=== PATIENT | female | born 1980 | race Caucasian/White ===

== ENCOUNTER 2017-12-13 15:36 | Emergency (ER) | payer OTHER ==
--- NOTE | 2017-12-13 17:53 | ED Physician Documentation ---
PD HPI CHEST PAIN - Stated complaint Stated Complaint: CHEST PX - Chief complaint Chief Complaint: Cardiac - History obtained from History obtained from: Patient - History of Present Illness Timing - onset: Other (She developed relatively sudden onset chest pain earlier this afternoon, it is a sharp right-sided chest pain radiating between the shoulder blades is worse if she bends forward or lifts her right arm. She is not short of breath with it. She denies exogenous estrogens, recent travel, leg pain or swelling. She has no history of heart or lung problems. She says it is somewhat reminiscent of prior gallbladder pain from when she had her gallbladder removed 6 years ago.) Review of Systems Constitutional: reports: Reviewed and negative. denies: Fever, Chills, Fatigue Nose: denies: Rhinorrhea / runny nose, Congestion Cardiac: reports: Chest pain / pressure. denies: Palpitations Respiratory: denies: Dyspnea, Cough GI: denies: Abdominal Pain, Nausea, Vomiting PD PAST MEDICAL HISTORY - Past Surgical History Past Surgical History: Yes General: Cholecystectomy, Appendectomy - Allergies Allergies/Adverse Reactions: Allergies Allergy/AdvReac Type Severity Reaction Status Date / Time erythromycin base Allergy Nausea Verified 08/22/15 19:38 [Erythromycin Base] hydrocodone bitartrate * Allergy Vomitting Verified 08/22/15 19:38 [From Vicodin] - Social History Does the pt smoke?: No Smoking Status: Never smoker Does the pt drink ETOH?: Yes Does the pt have substance abuse?: No - Immunizations Immunizations are current?: Yes - POLST Patient has POLST: No PD ED PE NORMAL - Vitals Vital signs reviewed: Yes - General General: Alert and oriented X 3, No acute distress - HEENT HEENT: PERRL, EOMI - Neck Neck: Supple, no meningeal sign, No bony TTP - Cardiac Cardiac: RRR, No murmur - Respiratory Respiratory: No respiratory distress, Clear bilaterally - Abdomen Abdomen: Non tender - Extremities Extremities: No edema, No calf tenderness / cord - Neuro Neuro: Alert and oriented X 3 Eye Opening: To Voice Motor: Obeys Commands Verbal: Oriented GCS Score: 14 - Psych Psych: Normal mood Results - Vitals Vitals: Vital Signs - 24 hr 12/13/17 15:41 Temperature 36.6 C Heart Rate 94 Respiratory 16 Rate Blood Pressure 129/87 H O2 Saturation 100 Oxygen O2 Source Room air - EKG (time done) 1540 Rate: Rate (enter#) (93) Rhythm: NSR [place]: Normal Intervals: Normal [place] QRS: Normal Ischemia: Normal ST segments - Labs Labs: Laboratory Tests 12/13/17 12/13/17 12/13/17 17:41 17:41 17:41 WBC 6.7 RBC 4.64 Hgb 12.3 Hct 37.4 MCV 80.4 L MCH 26.4 L MCHC 32.8 RDW 14.6 Plt Count 294 MPV 7.3 L Neut # 3.6 Lymph # 2.3 Chaves # 0.3 Eos # 0.4 Baso # 0.1 Absolute Nucleated RBC 0.00 Nucleated RBC % 0.0 D-Dimer Sodium 135 Potassium 3.8 Chloride 103 Carbon Dioxide 25 Anion Gap 7.0 BUN 9 Creatinine 0.7 Estimated GFR (MDRD) 93 Glucose 91 Calcium 9.0 Total Bilirubin 0.2 AST 19 ALT 19 Alkaline Phosphatase 49 Troponin I < 0.04 Total Protein 8.1 Albumin 4.3 Globulin 3.8 Albumin/Globulin Ratio 1.1 Lipase 18 L 12/13/17 17:41 WBC RBC Hgb Hct MCV MCH MCHC RDW Plt Count MPV Neut # Lymph # Chaves # Eos # Baso # Absolute Nucleated RBC Nucleated RBC % D-Dimer < 200.0 L Sodium Potassium Chloride Carbon Dioxide Anion Gap BUN Creatinine Estimated GFR (MDRD) Glucose Calcium Total Bilirubin AST ALT Alkaline Phosphatase Troponin I Total Protein Albumin Globulin Albumin/Globulin Ratio Lipase - Rads (name of study) 2v chest Radiology: EMP read contemporaneously (normal) PD MEDICAL DECISION MAKING - ED course ED course: PE was considered because she is intermittently tachycardic but her d-dimer is negative. There is nothing in the history or physical to suggest dissection. Departure - Departure Disposition: Home, Self Care Clinical Impression: Chest pain Qualifiers: Chest pain type: pleurodynia Qualified Code(s): R07.81 - Pleurodynia Condition: Good Record reviewed to determine appropriate education?: Yes Instructions: ED Chest Pain NonCardiac Comments: Call your doctor to arrange a follow-up appointment, make the next available appointment. In the interim, return anytime if worse or if new symptoms develop. Your blood pressure was elevated today on check into the emergency department. This does not mean that you have hypertension, it is a common phenomenon to come to the emergency department and have elevated blood pressure. I recommend that you see your primary care physician within the week to have it rechecked when you are feeling better.
[2017-12-13 17:54] LABS: BASOPHILS # (AUTO) 0.1 10^3/uL (0.0-0.1); EOSINOPHILS # (AUTO) 0.4 10^3/uL (0.0-0.7); EOSINOPHILS % (AUTO) 5.9 %; HGB - HEMOGLOBIN 12.3 g/dL (12.0-16.0); LYMPHOCYTES # (AUTO) 2.3 10^3/uL (1.5-3.5); LYMPHOCYTES % (AUTO) 34.1 %; MEAN CORPUSCULAR HEMOGLOBIN 26.4 pg (27.0-31.0); MEAN CORPUSCULAR HGB CONC 32.8 g/dL (32.0-36.0); MEAN CORPUSCULAR VOLUME 80.4 fL (81.0-99.0); MEAN PLATELET VOLUME 7.3 fL (7.9-10.8); MONOCYTES # (AUTO) 0.3 10^3/uL (0.0-1.0); MONOCYTES % (AUTO) 5.1 %; NEUTROPHILS # (AUTO) 3.6 10^3/uL (1.5-6.6); NEUTROPHILS % (AUTO) 53.9 %; PLT - PLATELET COUNT 294 10^3/uL (130-450); RED BLOOD COUNT 4.64 10^6/uL (4.20-5.40); RED CELL DISTRIBUTION WIDTH 14.6 % (12.0-15.0); WHITE BLOOD COUNT 6.7 x10^3/uL (4.8-10.8)
[2017-12-13 17:57] LABS: ALBUMIN 4.3 g/dL (3.2-5.5); ALBUMIN/GLOBULIN RATIO 1.1 (1.0-2.2); BILIRUBIN,TOTAL 0.2 mg/dL (0.2-1.0); CREATININE 0.7 mg/dL (0.4-1.0); TOTAL PROTEIN 8.1 g/dL (6.7-8.2)
--- NOTE | 2017-12-13 18:22 | XRAY Report ---
EXAM: CHEST RADIOGRAPHY EXAM DATE: 12/13/2017 06:03 PM. CLINICAL HISTORY: Chest pain. COMPARISON: None. TECHNIQUE: 2 views. FINDINGS: Lungs/Pleura: No focal opacities evident. No pleural effusion. No pneumothorax. Normal volumes. Mediastinum: Heart and mediastinal contours are unremarkable. Other: None. IMPRESSION: No acute intrathoracic plain film abnormality. [facility] Referring Provider Line: [phone] SITE ID: [id number]
[2017-12-13 18:37] VITALS: BP 120/84
[2017-12-13] MEDS ORDERED: IBUPROFEN 800 MG TABLET PO STA (18:39)
== END 2017-12-13 19:03 | disposition home or self-care (01) ==
LOC: ED 15:36
DX: R07.81 Pleurodynia (principal); R03.0 Elevated blood-pressure reading, without diagnosis of hypertension; I45.9 Conduction disorder, unspecified
CPT/HCPCS: 36415; 71046; 80053; 83690; 84484; 85025; 85379; 93005; 99283; 99284; A9270; 81001; 81003; 81025; 87086

== ENCOUNTER 2018-07-25 08:25 | Emergency (ER) | payer OTHER ==
[2018-07-25] MEDS ORDERED: VANCOMYCIN INJ 1 GM in SODIUM CHLORIDE 0.9% 500 ML IV STA (09:00)
[2018-07-25] MEDS ORDERED: cefTRIAXone 1 GM in SODIUM CHLORIDE 0.9% MINIBAG 100 ML IV STA (09:01)
--- NOTE | 2018-07-25 09:05 | ED Physician Documentation ---
PD HPI SKIN - Stated complaint Stated Complaint: LT FACIAL SORE/SWELLING - Chief complaint Chief Complaint: General - History obtained from History obtained from: Patient, Family - History of Present Illness Timing - onset: How many days ago (3) Timing - duration: Days (3) Timing - details: Gradual onset, Still present Location: Face Quality / character: Painful, Raised, Crusted, Swelling, Draining Associated symptoms: Headache, Facial swelling. No: Fever, Myalgias Similar symptoms before: Diagnosis (facial acne with hormone connection) Recently seen: Clinic - Additional information Additional information: 37-year-old female who has sores that develop on her face related to hormonal changes has developed an area that is much more swollen and erythematous than usual and she went into see the doctor yesterday was placed on some Septra and despite this overnight her swelling has dramatically increased. She is gotten a little bit of drainage out of a ulceration on the face there but the area is very firm. She has not had a fever or vomiting. Review of Systems Constitutional: reports: Myalgias, Fatigue. denies: Fever, Chills Eyes: denies: Decreased vision Ears: denies: Ear pain Nose: denies: Rhinorrhea / runny nose, Congestion Throat: denies: Sore throat Cardiac: denies: Chest pain / pressure Respiratory: denies: Dyspnea, Cough GI: denies: Abdominal Pain, Nausea, Vomiting : denies: Dysuria Skin: reports: Lesions Musculoskeletal: denies: Neck pain, Back pain, Extremity pain Neurologic: denies: Generalized weakness, Focal weakness, Numbness PD PAST MEDICAL HISTORY - Past Surgical History Past Surgical History: Yes General: Cholecystectomy, Appendectomy - Present Medications Home Medications: Ambulatory Orders Medication Instructions Recorded Confirmed Clindamycin HCl [Clindamycin 300MG 300 mg PO Q6H #28 capsule 07/25/18 CAP] Mupirocin Calcium [Bactroban] 1 gm TP BID #30 cream..g. 07/25/18 - Allergies Allergies/Adverse Reactions: Allergies Allergy/AdvReac Type Severity Reaction Status Date / Time erythromycin base Allergy Nausea Verified 07/25/18 08:36 [Erythromycin Base] hydrocodone bitartrate * Allergy Vomitting Verified 07/25/18 08:36 [From Vicodin] - Social History Does the pt smoke?: No Smoking Status: Never smoker Does the pt drink ETOH?: Yes Does the pt have substance abuse?: No - Immunizations Immunizations are current?: Yes - POLST Patient has POLST: No PD ED PE NORMAL - Vitals Vital signs reviewed: Yes (tachy and hypertensive ) - General General: Alert and oriented X 3, Well developed/nourished - HEENT HEENT: PERRL, EOMI, Other (There is marked swelling to the left face with an ulceration to the skin over the left cheek. The area is firm with no fluctuance and drainage is not expressed from the ulceration. The area is about 4cm round. There are 2 small sores on the right cheek as well without significant surrounding swelling. 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, No motor deficit, No sensory deficit, Normal speech Eye Opening: Spontaneous Motor: Obeys Commands Verbal: Oriented GCS Score: 15 - Psych Psych: Normal mood, Normal affect Results - Vitals Vitals: Vital Signs - 24 hr 07/25/18 07/25/18 07/25/18 08:33 10:09 12:07 Temperature 37.5 C Heart Rate 114 H 89 88 Respiratory 15 14 14 Rate Blood Pressure 137/84 H 113/73 119/79 O2 Saturation 100 98 99 07/25/18 12:09 Temperature 36.8 C Heart Rate Respiratory Rate Blood Pressure O2 Saturation Oxygen O2 Source Room air - Labs Labs: Microbiology 07/25/18 09:16 Wound Culture - Preliminary Cheek - Left PD MEDICAL DECISION MAKING - ED course Complexity details: reviewed results, re-evaluated patient, considered differential, d/w patient, d/w family ED course: 37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 Today she is administered vancomycin and Rocephin intravenously and we will add clindamycin onto her antibiotic regimen. Departure - Departure Disposition: 01 Home, Self Care Clinical Impression: Facial abscess Condition: Stable Instructions: ED Staph Infec Abx Tx Only [facility] Prescriptions: Clindamycin HCl [Clindamycin 300MG CAP] 300 mg PO Q6H #28 capsule Mupirocin Calcium [Bactroban] 1 gm TP BID #30 cream..g.
[2018-07-25] MEDS ORDERED: KETOROLAC 60 MG/2 ML VIAL IVP STA (09:26)
[2018-07-25] MEDS ORDERED: VANCOMYCIN INJ 1 GM in SODIUM CHLORIDE 0.9% 500 ML IV SCH (10:00)
[2018-07-25] MEDS ORDERED: ONDANSETRON 4 MG/2 ML VIAL IVP STA (10:41)
[2018-07-25] MEDS ORDERED: HYDROmorphone 1 MG/ML CARPUJECT IVP STA (10:41)
[2018-07-25 13:47] VITALS: BP 129/80
== END 2018-07-25 13:40 | disposition home or self-care (01) ==
LOC: ED 08:25
DX: L02.01 Cutaneous abscess of face (principal)
CPT/HCPCS: 87070; 87205; 99283; 99284; J1170; J3370

== ENCOUNTER 2018-07-27 12:17 | Emergency (ER) | payer OTHER ==
[2018-07-27] MEDS ORDERED: CLINDAMYCIN 600 MG/50 ML 50 ML IV ONE (12:49)
[2018-07-27] MEDS ORDERED: LIDOCAINE/PRILOCAINE 2.5% CREAM 5 GM TUBE TOP STA (12:49)
[2018-07-27] MEDS ORDERED: BUFFERED LIDOCAINE 10 ML SYRINGE SUBQ STA (12:49)
--- NOTE | 2018-07-27 12:51 | ED Physician Documentation ---
PD HPI SKIN - Stated complaint Stated Complaint: LT FACE WOUND - Chief complaint Chief Complaint: Wound - History obtained from History obtained from: Patient - History of Present Illness Timing - onset: Other (She has a infected abscess on the left side of her face. She was seen here a couple of days ago and received IV Rocephin and vancomycin and home-going clindamycin. A culture grew out Strep which is suspected to be pansensitive. The facial swelling is much better but she feels like the lump itself is not improving.) Review of Systems Constitutional: denies: Fever, Chills Respiratory: denies: Dyspnea, Cough GI: denies: Abdominal Pain, Abdominal Swelling, Nausea, Vomiting PD PAST MEDICAL HISTORY - Past Medical History Past Medical History: No Cardiovascular: None Respiratory: None Neuro: None Endocrine/Autoimmune: None GI: None GROCERY CLERK STOCKING: None : None HEENT: None Psych: None Musculoskeletal: None Derm: None - Past Surgical History Past Surgical History: Yes General: Cholecystectomy, Appendectomy - Present Medications Home Medications: Ambulatory Orders Medication Instructions Recorded Confirmed Clindamycin HCl [Clindamycin 300MG 300 mg PO Q6H #28 capsule 07/25/18 CAP] Mupirocin Calcium [Bactroban] 1 gm TP BID #30 cream..g. 07/25/18 oxyCODONE/ACET 5/325 [Percocet 5 1 each PO Q4-6H PRN #15 tablet 07/27/18 mg/325 mg] - Allergies Allergies/Adverse Reactions: Allergies Allergy/AdvReac Type Severity Reaction Status Date / Time erythromycin base Allergy Nausea Verified 07/25/18 08:36 [Erythromycin Base] hydrocodone bitartrate * Allergy Vomitting Verified 07/25/18 08:36 [From Vicodin] - Social History Does the pt smoke?: No Smoking Status: Never smoker Does the pt drink ETOH?: Yes Does the pt have substance abuse?: No - Immunizations Immunizations are current?: Yes - POLST Patient has POLST: No PD ED PE NORMAL - Vitals Vital signs reviewed: Yes - General General: Alert and oriented X 3, No acute distress - HEENT HEENT: Other (There is a large pointed abscess without cellulitis kind of over the mid left mandible) - Neck Neck: Supple, no meningeal sign, No bony TTP - Neuro Neuro: Alert and oriented X 3, Normal speech Results - Vitals Vitals: Vital Signs - 24 hr 07/27/18 12:20 Temperature 36.9 C Heart Rate 99 Respiratory 18 Rate Blood Pressure 126/80 O2 Saturation 99 Oxygen O2 Source Room air Procedures - Abscess I&D (location) Left face Preparation: Alcohol, Lidocaine 1% Incision: Incised with scalpel, Purulent drainage, Loculations broken, Packed (with 1/4 inch). No: Culture obtained (already done) Other: Pt tolerated well, Dressing applied. No: Antibiotic prescribed (on clindamycin) Departure - Departure Disposition: 01 Home, Self Care Clinical Impression: Facial abscess Condition: Good Record reviewed to determine appropriate education?: Yes Instructions: ED Abscess IandD Prescriptions: oxyCODONE/ACET 5/325 [Percocet 5 mg/325 mg] 1 each PO Q4-6H PRN #15 tablet PRN Reason: Pain Comments: Return Sunday afternoon for wound check and packing removal. Continue the antib iotics you are on. Forms: Activity restrictions
[2018-07-27] MEDS ORDERED: HYDROmorphone 2 MG/ML VIAL IVP STA (13:26)
[2018-07-27 14:01] VITALS: BP 118/81
== END 2018-07-27 14:10 | disposition home or self-care (01) ==
LOC: ED 12:17
DX: L02.01 Cutaneous abscess of face (principal); B95.5 Unspecified streptococcus as the cause of diseases classified elsewhere
CPT/HCPCS: 10060; 96365; 96375; 99283; J1170; J3490

== ENCOUNTER 2018-07-29 14:41 | Emergency (ER) | payer OTHER ==
[2018-07-29 15:08] VITALS: BP 122/86
--- NOTE | 2018-07-29 15:10 | ED Physician Documentation ---
PD HPI SKIN - Stated complaint Stated Complaint: WOUND DRAIN - Chief complaint Chief Complaint: Wound - History obtained from History obtained from: Patient - History of Present Illness Timing - onset: Other (Returns as instructed for packing removal and wound check. She has an abscess on the left cheek. She is much better today than she was 2 days ago with significant decrease in swelling and no problems with the antibiotics.) Review of Systems Constitutional: denies: Fever, Chills PD PAST MEDICAL HISTORY - Past Medical History Cardiovascular: None Respiratory: None Neuro: None Endocrine/Autoimmune: None GI: None UX DESIGNER: None : None HEENT: None Psych: None Musculoskeletal: None Derm: None - Past Surgical History Past Surgical History: Yes General: Cholecystectomy, Appendectomy - Present Medications Home Medications: Ambulatory Orders Medication Instructions Recorded Confirmed Mupirocin Calcium [Bactroban] 1 gm TP BID #30 cream..g. 07/25/18 RX: Clindamycin HCl [Clindamycin 300 mg PO Q6H #28 capsule 07/25/18 300MG CAP] oxyCODONE/ACET 5/325 [Percocet 5 1 each PO Q4-6H PRN #15 tablet 07/27/18 mg/325 mg] - Allergies Allergies/Adverse Reactions: Allergies Allergy/AdvReac Type Severity Reaction Status Date / Time erythromycin base Allergy Nausea Verified 07/29/18 14:57 [Erythromycin Base] hydrocodone bitartrate * Allergy Vomitting Verified 07/29/18 14:57 [From Vicodin] - Social History Does the pt smoke?: No Smoking Status: Never smoker Does the pt drink ETOH?: Yes Does the pt have substance abuse?: No - Immunizations Immunizations are current?: Yes - POLST Patient has POLST: No PD ED PE NORMAL - Vitals Vital signs reviewed: Yes - General General: Alert and oriented X 3, No acute distress - HEENT HEENT: Other (Healing abscess L mandible. packing removed, no more purulent drainage.) - Neuro Neuro: Alert and oriented X 3, Normal speech - Psych Psych: Normal mood, Normal affect Results - Vitals Vitals: Vital Signs - 24 hr 07/29/18 14:55 Temperature 36.9 C Heart Rate 88 Respiratory 18 Rate Blood Pressure 122/86 H O2 Saturation 99 Oxygen O2 Source Room air PD MEDICAL DECISION MAKING - ED course ED course: Swelling is almost gone, it looks better today. Departure - Departure Disposition: 01 Home, Self Care Clinical Impression: Facial abscess Condition: Good Record reviewed to determine appropriate education?: Yes Instructions: ED Abscess IandD Discharge Date/Time: 07/29/18 15:21
== END 2018-07-29 15:21 | disposition home or self-care (01) ==
LOC: ED 14:41
DX: L02.01 Cutaneous abscess of face (principal)
CPT/HCPCS: 99281; 99282

== ENCOUNTER 2018-07-31 15:00 | Outpatient (CLI) | payer OTHER ==
--- NOTE | 2018-07-31 20:00 | Ultrasound Report ---
Reason: EXCESSIVE MENSTRUATION Procedure Date: 07/31/2018 Accession Number: [id number] / [id number] Procedure: US - Pelvic w/Transvaginal CPT Code: FULL RESULT: EXAM: PELVIC ULTRASOUND EXAM DATE: 07/31/2018 03:22 PM. CLINICAL HISTORY: EXCESSIVE MENSTRUATION. COMPARISON: 05/06/2008. TECHNIQUE: Realtime transabdominal pelvic scan performed to identify the uterus and adnexa and as an overview of other pelvic structures, followed by transvaginal scan to provide greater detail of the uterus and adnexa, with static image documentation. FINDINGS: Uterus: 7 cm, volume 127 cc. Anteverted position. Mildly heterogeneous Masses: None. Endometrium: 6 mm. Subendometrial cysts Cervix: Unremarkable. Right Ovary: 2.9 x 1.9 x 1.8 cm, volume 5.2 cc. 1 cm follicle Normal echotexture and blood flow. Left Ovary: 2.8 x 2.1 x 2.1 cm, volume 6.5 cc. 1.5 cm follicle Normal echotexture and blood flow. Free Fluid: None. Other: None. IMPRESSION: 1. Possible adenomyosis. [facility]
== END 2018-07-31 15:01 | disposition home or self-care (01) ==
LOC: DI 15:00
PROVIDERS: ATTEND Obstetrics & Gynecology
DX: N92.0 Excessive and frequent menstruation with regular cycle (principal); N92.5 Other specified irregular menstruation
CPT/HCPCS: 76830; 76856

== ENCOUNTER 2018-08-05 17:13 | Outpatient (CLI) | payer OTHER ==
[2018-08-05 17:52] LABS: BASOPHILS # (AUTO) 0.1 10^3/uL (0.0-0.1); BASOPHILS % (AUTO) 1.1 %; EOSINOPHILS # (AUTO) 0.4 10^3/uL (0.0-0.7); EOSINOPHILS % (AUTO) 6.7 %; HGB - HEMOGLOBIN 12.1 g/dL (12.0-16.0); LYMPHOCYTES # (AUTO) 2.2 10^3/uL (1.5-3.5); LYMPHOCYTES % (AUTO) 33.4 %; MEAN CORPUSCULAR HGB CONC 32.6 g/dL (32.0-36.0); MEAN CORPUSCULAR VOLUME 82.7 fL (81.0-99.0); MEAN PLATELET VOLUME 6.9 fL (7.9-10.8); MONOCYTES # (AUTO) 0.3 10^3/uL (0.0-1.0); MONOCYTES % (AUTO) 4.2 %; NEUTROPHILS # (AUTO) 3.7 10^3/uL (1.5-6.6); NEUTROPHILS % (AUTO) 54.6 %; PLT - PLATELET COUNT 315 10^3/uL (130-450); RED BLOOD COUNT 4.48 10^6/uL (4.20-5.40); RED CELL DISTRIBUTION WIDTH 13.9 % (12.0-15.0); WHITE BLOOD COUNT 6.7 x10^3/uL (4.8-10.8)
[2018-08-05 19:50] LABS: THYROID STIMULATING HORMONE 1.13 uIU/mL (0.34-5.60)
[2018-08-05 19:52] LABS: FREE T4 (FREE THYROXINE) 0.81 ng/dL (0.58-1.64)
[2018-08-05 20:04] LABS: HCG,QUALITATIVE BLOOD NEGATIVE
== END 2018-08-05 17:14 | disposition home or self-care (01) ==
LOC: LAB 17:13
PROVIDERS: ATTEND Obstetrics & Gynecology
DX: Z01.812 Encounter for preprocedural laboratory examination (principal); N92.0 Excessive and frequent menstruation with regular cycle; N94.6 Dysmenorrhea, unspecified
CPT/HCPCS: 84439; 84443; 84703; 85025; 86850; 86900; 86901

== ENCOUNTER 2018-08-07 06:15 | Day surgery (SDC) | payer OTHER ==
--- NOTE | 2018-08-06 13:37 | PREOP HISTORY & PHYSICAL ---
DATE OF ADMISSION: 08/07/2018 Physician: Alessia Gaspar DO FACOG IDENTIFICATION: A 37-year-old G2, P2-0-0-2. HISTORY OF PRESENT ILLNESS: This is a patient of [facility] who presented with complaints of menorrhagia and dysmenorrhea. Patient states that she has been having very heavy bleeding and extremely significant back pain. Her symptoms are so bad that she has to work at home. She has tried Midol and control pills. They have not satisfactorily controlled patient's symptoms. She was emotional on control pills. I discussed with patient her options: To do nothing, a control pill trial, Mirena IUD, and hysterectomy. After discussion of the risks, benefits, alternatives, indications, and expectations of a total laparoscopic hysterectomy with bilateral salpingectomy, she decided to proceed with hysterectomy. I discussed with patient the risks, benefits, alternatives, indications, and expectations. Included in our discussion were the risks for hemorrhage or infection and damage to surrounding organs, which may be an inadvertent laceration, cauterization or ligation of the adjacent intestines, bladder, and ureters. Also with this procedure, she will no longer have menses, nor will she be able to have children. Although I do believe that this surgery will significantly change her life, I do not know how much pain will be relieved after surgery until she is completely healed from it. Patient also understands that there may be a potential of nerve damage as well as scar tissue formation after surgery. After all of her questions were answered to her satisfaction, she verbalized her desire to proceed with surgery. Consent forms have been signed today. Patient is otherwise doing well and denies any nausea, vomiting, fevers, chills, diarrhea, or constipation. PAST MEDICAL HISTORY: None. She denies hypertension, diabetes, thyroid disease, depression, asthma. PAST SURGICAL HISTORY 1. Laparoscopic appendectomy. 2. Laparoscopic cholecystectomy. 3. Bilateral silicone breast augmentation. 4. Loop electrosurgical excision procedure (LEEP). ALLERGIES 1. ERYTHROMYCIN, WITH WHICH SHE VOMITS. 2. She does vomit with VICODIN and states that her pain is not relieved with Vicodin. MEDICATIONS: None. Her pharmacy is [facility] in [place], [place]. SOCIAL HISTORY: She works at [employer]. She denies any tobacco or illicit drug use. She does consume alcohol on a social basis. Patient has two boys, ages 9 and 7. PAST OBSTETRICAL HISTORY: One vacuum-assisted vaginal delivery and one spontaneous vaginal delivery, both at term. Biggest baby weighed about at least 7 pounds at . PAST GYNECOLOGICAL HISTORY: All Pap smears have been normal after a LEEP procedure. Patient denies any other sexually transmitted diseases, specifically gonorrhea or chlamydia. She states her menses are monthly and has irregular postcoital bleeding. She denies any dyspareunia. Patient does have significant menstrual migraines. Again, she has very heavy vaginal bleeding and painful periods. Pap smear review: 10/25/2009, Pap smear ASCUS with negative high-risk human papilloma virus. 09/28/2010, Pap smear was nil. 11/10/2011, Pap smear was nil. 11/26/2012, Pap smear was negative with negative high-risk HPV. An 07/30/2018 endometrial biopsy and Pap smear is currently pending. FAMILY HISTORY: Noncontributory. REVIEW OF SYSTEMS: Negative unless otherwise stated. OBJECTIVE VITAL SIGNS: Height is 67 inches, weight is 179 pounds. BMI is 28. Blood pressure 118/70. GENERAL: Patient is a well-developed and well-nourished female in no apparent distress. She is alert and oriented x3. HEENT: Within normal limits. CARDIOVASCULAR: Rate is regular. No murmurs, rubs. PULMONARY: Lungs clear to auscultation bilaterally. ABDOMEN: Soft, nontender. There are laparoscopic incision port sites that have been healed. WORKUP 06/20/2018: Glucose 89, uric acid 4.5, creatinine 0.7, potassium 4.1, AST 12, white count 5.6. H and H is 12.1 and 36.2, platelets 241. 07/31/2018: Pelvic ultrasound shows a uterus measuring 7 cm and is anteverted. It is mildly heterogeneous. No masses are noted. Endometrium is 6 mm with subendometrial cyst. Cervix is unremarkable. Left and right ovaries are both normal. There is no free fluid. Possible adenomyosis. ASSESSMENT 1. A 37-year-old G2, P2-0-0-2. 2. Menorrhagia. 3. Dysmenorrhea. PLAN 1. We will have patient proceed to getting preop laboratories, including a CBC, TSH, free T4, and type and screen in preparation for 08/07/2018 total laparoscopic hysterectomy, bilateral salpingectomy, and cystoscopy. 2. Prescriptions for Dilaudid have been given to patient for any breakthrough pain that she may experience beyond [id number] ibuprofen and Tylenol. She has been instructed to take Tylenol 1000 mg q.8 hours, as well as Motrin 800 mg p.o. q.6 hours. 3. Patient to return to see me in two weeks for routine postop check. 4. Patient to call should she have any worsening fevers, chills, abdominal pain, or vaginal bleeding. TD: 08/05/2018 16:50 MY
[~2018-08-07 06:15] MED LIST: ACETAMINOPHEN 1,000 MG/100 ML 100 ML IV ONE
[2018-08-07] MEDS ORDERED: CELECOXIB 100 MG CAPSULE PO ONE (06:16)
[2018-08-07] MEDS ORDERED: GABAPENTIN 400 MG CAPSULE ONE (06:17)
[2018-08-07] MEDS ORDERED: ceFAZolin 2 GM/50 ML 2 GM/50 ML BAG IV ONE (06:19)
--- NOTE | 2018-08-07 06:56 | ANESTHESIA ---
Pre-Anesthesia VS, & Labs - Diagnosis menorrhagia, dysmenorrhea - Procedure Total laparoscopic hysterectomy, bilateral salphingectomy, cystoscopy Vital Signs: Temp Pulse Resp BP Pulse Ox 36.8 C 90 18 125/88 H 100 08/07/18 06:25 08/07/18 06:25 08/07/18 06:25 08/07/18 06:25 08/07/18 06:25 Height 5 ft 7 in Weight (kg) 80.8 kg Body Mass Index 25.8 - NPO >8 hours - Is Patient ?: No Home Medications and Allergies Allergies/Adverse Reactions: Allergies Allergy/AdvReac Type Severity Reaction Status Date / Time erythromycin base Allergy Nausea Verified 07/29/18 14:57 [Erythromycin Base] hydrocodone bitartrate * Allergy Vomitting Verified 07/29/18 14:57 [From Vicodin] Anes History & Medical History - Medical History Cardiovascular: reports: None Pulmonary: reports: None Gastrointestinal: reports: None Urinary: reports: None Neuro: reports: None Musculoskeletal: reports: None Endocrine/Autoimmune: reports: None Blood Disorders: reports: None Skin: reports: None Smoking Status: Never smoker - Surgical History General: Cholecystectomy, Appendectomy Gynecologic: Breast implants Exam General: Alert Dental: WNL Mouth Openin Fingerbreadth Mallampati classification: II Thyromental Distance: 4-6 cm Respiratory: Lungs clear Cardiovascular: Regular rate Mental/Cognitive Status: Alert/Oriented X3 Plan Anesthesia Type: General Consent for Procedure(s) Verified and Reviewed: Yes Code Status: Attempt Resuscitation ASA classification: 1-Healthy patient Is this case an emergency?: Yes
[2018-08-07] MEDS ORDERED: LACTATED RINGERS 1,000 ML IV ONE ×4 (06:57→14:38)
[2018-08-07] MEDS ORDERED: SCOPOLAMINE PATCH TOP ONE (07:04)
[2018-08-07] MEDS ORDERED: BUPIVACAINE 0.25%-EPI 1:200000 PF 30 ML VIAL ONE (07:13)
[2018-08-07] MEDS ORDERED: NEOSTIGMINE 1 MG/1 ML 10 ML MDV IVP ONE (08:40)
[2018-08-07] MEDS ORDERED: LIDOCAINE-MPF 2% 5 ML VIAL IM ONE (08:40)
[2018-08-07] MEDS ORDERED: ROCURONIUM 50 MG/5 ML VIAL IVP ONE (08:40)
[2018-08-07] MEDS ORDERED: PROPOFOL 200 MG/20 ML VIAL IVP ONE (08:40)
[2018-08-07] MEDS ORDERED: DEXAMETHASONE 4 MG/ML VIAL IVP ONE (08:40)
[2018-08-07] MEDS ORDERED: HYDROmorphone 1 MG/ML CARPUJECT IVP ONE (08:40)
[2018-08-07] MEDS ORDERED: MIDAZOLAM 2 MG/2 ML VIAL IVP ONE (08:40)
[2018-08-07] MEDS ORDERED: ePHEDrine 50 MG/ML VIAL IVP ONE (08:40)
[2018-08-07] MEDS ORDERED: BUPIVACAINE 0.25%-EPI 1:200000 PF 30 ML VIAL SUBQ ONE (08:40)
[2018-08-07] MEDS ORDERED: ONDANSETRON 4 MG/2 ML VIAL IVP ONE (08:40)
[2018-08-07] MEDS ORDERED: GLYCOPYRROLATE 1 MG/5 ML VIAL IVP ONE (08:40)
[2018-08-07] MEDS ORDERED: ESMOLOL 100 MG/10 ML VIAL IVP ONE (08:40)
--- NOTE | 2018-08-07 10:49 | OPERATIVE REPORT ---
Operative Report - Other Other Information/Narrative: Date of Operation: 08/07/2018 Surgeon: Alessia Gaspar DO FACOG Quarter Supervisor: Monty Gottlieb MD FACOG Tank House Supervisor: Bhupinder Garcia CRNA Anesthesia: GET Pre-op Dx: 1. 37 yo 2. Menorrhagia 3. Dysmenorrhea Post-op Dx: 1. 37 yo 2. Menorrhagia 3. Dysmenorrhea Procedure: 1. TLH 2. BS 3. Cystoscopy Findings: 1. Enlarged uterus 2. Normal ovaries and fallopian tubes 3. Normal liver edge Specimens: Uterus and fallopian tubes en bloc EBL: 100 mL Drains: Cordova catheter to gravity Complications: None Dictation: [id number]
[2018-08-07] MEDS ORDERED: ONDANSETRON 4 MG/2 ML VIAL IVP PRN (11:03)
[2018-08-07] MEDS ORDERED: HYDROmorphone 0.5 MG/0.5 ML SYRINGE IVP PRN (11:03)
[2018-08-07] MEDS ORDERED: HYDROmorphone 2 MG TABLET PO PRN (11:03)
[2018-08-07] MEDS ORDERED: LORazepam 2 MG/ML VIAL IVP PRN (11:03)
[2018-08-07] MEDS: HYDROmorphone 2 MG TABLET ONE ×2 (12:10→12:15)
[2018-08-07] MEDS ORDERED: ACETAMINOPHEN 500 MG TABLET PO SCH (14:00)
[2018-08-07] MEDS ORDERED: HYDROmorphone 2 MG TABLET ONE (15:43)
[2018-08-07 15:59] VITALS: BP 109/74
[2018-08-07] MEDS ORDERED: DOCUSATE SODIUM 100 MG CAPSULE PO SCH (21:00)
--- NOTE | 2018-08-07 22:30 | OPERATIVE REPORT ---
DATE OF OPERATION: 08/07/2018 SURGEON: Alessia Gaspar DO, FACOG LOCKS TENDER: Monty Gottlieb MD, FACOG VASCULAR SPECIALISTS: Bhupinder Garcia CRNA. ANESTHESIA: General endotracheal tube. PREOPERATIVE DIAGNOSES: 1. A 37-year-old G2, P2-0-0-2. 2. Menorrhagia. 3. Dysmenorrhea. POSTOPERATIVE DIAGNOSES: 1. A 37-year-old G2, P2-0-0-2. 2. Menorrhagia 3. Dysmenorrhea. PROCEDURES: 1. Total laparoscopic hysterectomy. 2. Bilateral salpingectomy. 3. Cystoscopy. FINDINGS: 1. Enlarged uterus, but otherwise within normal limits. 2. Normal ovaries and fallopian tubes. 3. Normal liver edge. 4. Surgically absent appendix. SPECIMENS: Uterus and fallopian tubes en bloc. ESTIMATED BLOOD LOSS: 100 mL DRAINS: Cordova catheter to gravity. COMPLICATIONS: None. HISTORY OF PRESENT ILLNESS: The patient is a patient of [facility] who has had a longstanding history of menorrhagia and dysmenorrhea. The patient desired definitive of her problems. I discussed with the patient the risks, benefits, alternatives, indications, expectations of total laparoscopic hysterectomy, bilateral salpingectomy and cystoscopy. Included in our discussion were the risks of hemorrhage, infection, damage to surrounding organs, which may include, but is not limited to an inadvertent laceration, cauterization or ligation of adjacent intestines, ureters, and bladder. Furthermore, with this procedure she will no longer to be able to bear children nor will she have a menses. There may be complications from the surgery with regard to pain. Nerves may be lacerated and scar tissue may form causing chronic pelvic pain. After all of the patient's questions were answered to her satisfaction, she verbalized her desire to proceed with surgery. Consent forms have been signed. OPERATION IN DETAIL: The patient was identified and consented and taken to the operating room. IV access was already in place. She was given sequential compression devices which were placed to the lower extremities and turned on. The patient was then given satisfactory general tube anesthesia as per Ubaldo Garcia. The patient was given 2 grams The patient Ancef IV for postoperative cellulitis prophylaxis. The patient was then prepped and draped in normal sterile fashion in the lithotomy position using Yellofin stirrups. Cordova catheter was placed in her bladder. A timeout was performed, which correctly identified the patient, time of procedure, and the procedure itself. A medium V-Care uterine manipulator and colpotomizer was placed in the uterus and on top of the cervix. Next, 3 laparoscopic port sites were identified in the abdomen. They were all 5 mm incisions. The first was in the subumbilical fold in the left and right lower quadrants were placed in the respective lower abdominal quadrants approximately 2 fingerbreadths superior and medial to the anterior superior iliac spine. The incisions were injected with a total of 30 mL of 0.25% Marcaine with epinephrine. This anesthetic was injected at the beginning and at the end of the surgery. Entrance of the abdomen was made directly with a 5 mm Visiport trocar in the subumbilical fold. No trauma to intra-abdominal organs was noted. CO2 gas was then used to insufflate the abdomen. Satisfactory pneumoperitoneum was noted. Two other trocars were placed under direct visualization of the camera. Inspection of the liver edge was normal. The appendix was surgically absent. Inspection of the pelvis revealed an enlarged uterus, but within normal limits. The ovaries and fallopian tubes were within normal limits bilaterally. Attention was then turned towards the left adnexa. The left fallopian tube was identified and followed to its fimbriated end. With the LigaSure, the fallopian tube was then excised just inferior to the mesosalpinx. This incision was then carried inferiorly in order to cauterize and incise the round ligament. Incision was carried inferiorly again on the broad ligament in order to cauterize and incise the anterior lip of the broad ligament. This incision was carried out inferiorly in order to create a bladder flap. The right fallopian tube was then identified and then excised with the LigaSure in a similar fashion. The round ligament was next cauterized and incised. Incision was made into the broad ligament on the right side, joining the bladder flap that had been already created on the left side. Bladder flap was further developed bluntly and sharply. The right uterine artery was then identified and then cauterized and incised. The left uterine artery was then identified and then clamped, cauterized, and incised. Further development of the bladder flap was then performed. The superior cup of the are uterine manipulator and colpotomizer was palpated. A Harmonic was used to excise the cervix from the vagina. The uterus was then delivered into the vagina with the fallopian tubes intact. We kept the uterine fundus in the vagina to help maintain pneumoperitoneum. The vaginal cuff was then closed with a single running stitch of V-Loc. Hemostasis was noted. The CO2 gas was then allowed to egress into the atmosphere relieving the pneumoperitoneum. All instruments were removed out of the abdomen and the laparoscopic port sites were closed with subcuticular stitch of 4-0 Monocryl. Dermabond was placed on top of the incisions. The cystoscopy was then performed. Normal saline solution was used as the distending media. A 30-degree camera was used and both ureteral orifices were seen as well as bilateral ureteral jets. Cystoscopy was then discontinued and the Cordova catheter was returned into the bladder. At this point in time, the procedure had been completed. All sponge, lap, and needle counts were correct x2 as per nurse report. The patient was taken back to recovery room in stable condition. She will be discharged to home later today after postoperative criteria are met. The patient was given Celebrex preoperatively as well as IV acetaminophen and gabapentin. The patient has prescription for Dilaudid for any pain that her oyrv-auf-jujdisi ibuprofen and Tylenol do not take care of. The patient is to see me in two weeks at [facility]. She is to call if she was having worsening fevers, chills, abdominal pain or vaginal bleeding. TD: 08/07/2018 11:17 MY
== END 2018-08-07 06:16 | disposition home or self-care (01) ==
LOC: SDS 06:15
PROVIDERS: ATTEND Obstetrics & Gynecology
PROC: 0UT94ZZ Resection of Uterus, Percutaneous Endoscopic Approach (ICD-10-PCS; principal; 2018-08-07 07:30)
PROC: 0UT74ZZ Resection of Bilateral Fallopian Tubes, Percutaneous Endoscopic Approach (ICD-10-PCS; 2018-08-07 07:30)
DX: N92.0 Excessive and frequent menstruation with regular cycle (principal); N94.6 Dysmenorrhea, unspecified
CPT/HCPCS: 58571; A9270; J0131; J0690; J1170; J3490; J7120

== ENCOUNTER 2024-01-28 16:21 | Emergency (ER) | payer BC, OTHER ==
--- NOTE | 2024-01-28 17:52 | ED Physician Documentation ---
History of Present Illness - Stated complaint Stated Complaint: UNWELL,INCISION ISSUE - Chief complaint Chief Complaint: General - History obtained from History obtained from: Patient - Additonal information Additional information: Patient is a 43-year-old female who presents to the emergency department stating that she had a double mastectomy at the [facility] 4 weeks ago. She had existing breast implants and those were left in place and had a breast lift done at the same time. She is scheduled to have a port placed next week and start chemotherapy next week. She states that she had redness and swelling to the left breast incision and was started on Keflex, states that the swelling and pain have gotten worse and had purulent drainage today. Review of Systems Constitutional: denies: Fever, Chills PD PAST MEDICAL HISTORY - Past Medical History Past Medical History: Yes Cardiovascular: None Respiratory: None Neuro: None Endocrine/Autoimmune: None GI: None DIRECTOR OF SCIENTIFIC RESEARCH: None : None HEENT: None Psych: None Musculoskeletal: None Derm: None - Past Surgical History Past Surgical History: Yes General: Cholecystectomy, Appendectomy /DIRECTOR OF SCIENTIFIC RESEARCH: Hysterectomy - Present Medications Home Medications: Ambulatory Orders Medication Instructions Recorded Confirmed HYDROmorphone [Dilaudid] 2 mg PO Q4H PRN #20 tablet 01/28/24 Loratadine [Claritin] 10 mg PO DAILY 01/28/24 01/28/24 Ondansetron Odt [Zofran] 4 mg TL Q6H PRN #10 tablet 01/28/24 cephALEXin [Keflex] 500 mg PO Q6H #28 cap 01/28/24 - Allergies Allergies/Adverse Reactions: Allergies Allergy/AdvReac Type Severity Reaction Status Date / Time erythromycin base Allergy Nausea Verified 01/28/24 16:27 [Erythromycin Base] hydrocodone bitartrate * Allergy Vomitting Verified 01/28/24 16:27 [From Vicodin] - Social History Does the pt smoke?: No Smoking Status: Never smoker Does the pt drink ETOH?: Yes Does the pt have substance abuse?: No - Immunizations Immunizations are current?: Yes - POLST Patient has POLST: No PD ED PE NORMAL - Vitals Vital signs reviewed: Yes - General General: Alert and oriented X 3, No acute distress - HEENT HEENT: Moist mucous membranes - Cardiac Cardiac: RRR - Respiratory Respiratory: No respiratory distress, Clear bilaterally - Derm Derm: Warm and dry - Neuro Neuro: Alert and oriented X 3 - Psych Psych: Normal mood, Normal affect - Free text exam Free text exam: All exam and procedure was chaperoned by Claribel PA. The right breast appears to be well-healing. No signs of infection. The left breast has a warm fluctuant area with a small amount of purulent drainage to the medial third of the incision. There is mild erythema surrounding the incision as well. Results - Vitals Vitals: Vital Signs - 24 hr 01/28/24 01/28/24 01/28/24 16:28 17:00 17:30 Temperature 36.9 C Heart Rate 107 H 96 112 H Respiratory 13 20 20 Rate Blood Pressure 140/86 H 129/87 H 135/100 H O2 Saturation 100 100 100 01/28/24 01/28/24 01/28/24 18:11 18:30 19:16 Temperature 36.9 C 36.5 C Heart Rate 96 99 109 H Respiratory 18 22 20 Rate Blood Pressure 124/88 H 134/88 H 131/86 H O2 Saturation 100 100 94 Oxygen O2 Source Room air - Labs Labs: Microbiology 01/28/24 19:00 Wound Culture - Preliminary Breast - Left Procedures - Abscess I&D (location) L breast Preparation: Confirmed with ultrasound, Lidocaine 1%, With epi Incision: Incised with scalpel, Purulent drainage, Packed, Culture obtained Other: Pt tolerated well, Dressing applied, Antibiotic prescribed PD Medical Decision Making - ED course Complexity details: re-evaluated patient, considered differential, d/w patient ED course: 43-year-old female with what appears to be a left breast abscess underneath her incision from her surgery 4 weeks ago. There is a small amount of purulent drainage. A small incision was made at that site at the site of her previous incision and approximately a 1 cm area was opened. A large amount of fluid drained from the area. A mix of serosanguineous and purulent fluid. Packing was then placed in the area. Patient tolerated well. Will have her contact her surgeon for close follow-up. She is well-appearing, nontoxic. Afebrile. Pain well-controlled with a dose of Dilaudid here. She does request pain medication for home and this was prescribed for her. Patient is well-appearing, nontoxic. No evidence of sepsis. Patient was prescribed Bactrim by her surgeon but has not picked it up yet, we will add Keflex to this. Patient counseled regarding signs and symptoms for which I believe and urgent re-evaluation would be necessary. Patient with good understanding of and agreement to plan and is comfortable going home at this time This document was made in part using voice recognition software. While efforts are made to proofread this document, sound alike and grammatical errors may occur. Departure - Departure Disposition: 01 Home, Self Care Clinical Impression: Post-operative wound abscess Condition: Good Instructions: ED Abscess IandD Follow-Up: your,doctor in 2-3 days for wound check [Other] Prescriptions: HYDROmorphone [Dilaudid] 2 mg PO Q4H PRN #20 tablet PRN Reason: pain cephALEXin [Keflex] 500 mg PO Q6H #28 cap Ondansetron Odt [Zofran] 4 mg TL Q6H PRN #10 tablet PRN Reason: Nausea / Vomiting Comments: Your prescriptions were sent to [facility] in [place]. A wound culture was sent today and we will call you if a antibiotic change is needed. The packing should stay in place for the next 2 to 3 days. However if it falls out, that is okay it does not need to be urgently replaced. 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 We will also add Keflex to this. Please return if you worsen. I am prescribing a short course of narcotic pain medication for you. These are potentially dangerous and addictive medications that should be used carefully. These medications may constipate you. Take an bgjn-qnf-irznqoe stool softener (docusate) twice daily with plenty of water while taking these medications. If you go 24 hours without a bowel movement, take aouw-gpe-pggwmde miralax, per package instructions. Do not drink or drive while taking these medications. If you received narcotic or sedating medications while in the emergency department, do not drive for 24 hours. Store this medication in a safe, secure place and out of reach of children. It is a violation of federal law to give or sell this medication to another person or to use in a manner other than prescribed. The ED will not refill narcotic prescriptions, including prescriptions lost or stolen. To dispose of unwanted medications: 1. [facility] at [address] in [place] has a medication drop box. They accept prescription medications (in pill form) Sunday through Sunday 9:00 a.m. to 5:00 p.m. 2. The [facility] [employer] accepts prescription medications (in pill form only) for disposal year round. Call for more information. 3. Contact the [facility] for the next [facility] sponsored prescription drug collection event. , [phone], or [phone]; Forms: PCP List Discharge Date/Time: 01/28/24 19:16
[2024-01-28] MEDS: HYDROmorphone 1 MG/ML CARPUJECT IM STA (18:05)
[2024-01-28] MEDS: LIDOCAINE 1%-EPI 1:100000 20 ML MDV SUBQ STA (18:06)
[2024-01-28 19:17] VITALS: BP 131/86; O2SAT 94
== END 2024-01-28 19:16 | disposition home or self-care (01) ==
LOC: ED 16:21
DX: T81.41XA Infection following a procedure, superficial incisional surgical site, initial encounter (principal)
CPT/HCPCS: 10060; 87070; 87205; 96372; 99283; J1170

== ENCOUNTER 2024-03-18 14:11 | Outpatient (CLI) | payer BC ==
[2024-03-18 14:24] LABS: BASOPHILS # (AUTO) 0.1 10^3/uL (0.0-0.1); BASOPHILS % (AUTO) 1.3 %; EOSINOPHILS # (AUTO) 0.1 10^3/uL (0.0-0.7); EOSINOPHILS % (AUTO) 1.3 %; HCT - HEMATOCRIT 32.4 % (37.0-47.0); HGB - HEMOGLOBIN 10.1 g/dL (12.0-16.0); LYMPHOCYTES # (AUTO) 1.4 10^3/uL (1.5-3.5); MEAN CORPUSCULAR HEMOGLOBIN 26.6 pg (27.0-31.0); MEAN CORPUSCULAR HGB CONC 31.2 g/dL (32.0-36.0); MEAN CORPUSCULAR VOLUME 85.5 fL (81.0-99.0); MEAN PLATELET VOLUME 8.4 fL (7.9-10.8); MONOCYTES # (AUTO) 0.3 10^3/uL (0.0-1.0); MONOCYTES % (AUTO) 7.1 %; NEUTROPHILS # (AUTO) 2.8 10^3/uL (1.5-6.6); NEUTROPHILS % (AUTO) 61.1 %; PLT - PLATELET COUNT 296 10^3/uL (130-450); RED BLOOD COUNT 3.79 10^6/uL (4.20-5.40); RED CELL DISTRIBUTION WIDTH 15.1 % (12.0-15.0); WHITE BLOOD COUNT 4.7 x10^3/uL (4.8-10.8)
[2024-03-18 14:37] LABS: ALBUMIN/GLOBULIN RATIO 1.3 (1.0-2.2); BILIRUBIN,TOTAL 0.3 mg/dL (0.2-1.0); CALCIUM 9.3 mg/dL (8.5-10.3); CREATININE 0.7 mg/dL (0.6-1.3); POTASSIUM 3.6 mmol/L (3.5-4.5)
== END 2024-03-18 14:12 | disposition home or self-care (01) ==
LOC: LAB 14:11
PROVIDERS: ATTEND Student in an Organized Health Care Education/Training Program
DX: C50.312 Malignant neoplasm of lower-inner quadrant of left female breast (principal); Z17.0 Estrogen receptor positive status [ER+]
CPT/HCPCS: 36415; 80053; 85025